=== PATIENT | male | born 1955 | race Caucasian/White ===

== ENCOUNTER 2023-04-01 20:32 | Inpatient (IN) | payer OTHER ==
[~2023-04-01] VITALS: Ht 175.3 cm; Wt 64.9 kg
--- NOTE | 2023-04-01 21:15 | NUR ---
PT AMB TO RM 3 WITH C/O BACK PAIN ,10.
[2023-04-01] MEDS ORDERED: KETOROLAC TROMETHAMINE 60 MG INJ IM ONE ×2 (22:30→23:05)
[2023-04-01] MEDS ORDERED: DIAZEPAM 10 MG/2 ML DISP.SYRIN IM ONE (22:30)
[2023-04-01] MEDS ORDERED: DIAZEPAM 10 MG/2 ML DISP.SYRIN ONE (23:06)
--- NOTE | 2023-04-01 23:14 | NUR ---
Patient medicated as per order, family remains at bedside both updated on plan of care.
[2023-04-02] MEDS ORDERED: MORPHINE SULFATE 4 MG/1 ML DISP.SYRIN IM ONE (00:30)
[2023-04-02] MEDS ORDERED: MORPHINE SULFATE 4 MG/1 ML DISP.SYRIN ONE (00:36)
[2023-04-02 00:42] LABS: HEMATOCRIT 39.3 % (36.7-47.1); MEAN CORPUSCULAR HEMOGLOBIN 30.1 uug (23.8-33.4); MEAN CORPUSCULAR VOLUME 89.1 fL (73.0-96.2); PLATELET COUNT (AUTO) 180 K/uL (152-348)
[2023-04-02 00:54] LABS: CREATININE 1.2 mg/dL (0.6-1.3); POTASSIUM 3.8 mmol/L (3.5-5.1)
[2023-04-02 01:06] LABS: BILIRUBIN,DIRECT 0.2 mg/dL (0.0-0.2); TOTAL PROTEIN, SERUM 6.5 g/dL (6.4-8.2)
[2023-04-02] MEDS ORDERED: TRAMADOL HCL 50 MG TABLET PO ONE (03:30)
[2023-04-02] MEDS ORDERED: TRAMADOL HCL 50 MG TABLET ONE (03:33)
[2023-04-02] MEDS ORDERED: HYDROMORPHONE 1 MG/1 ML DISP.SYRIN IM ONE (06:30)
--- NOTE | 2023-04-02 07:20 | NUR ---
REPORT GIVEN TO LUIS FERNANDO MINOR.
[2023-04-02] MEDS ORDERED: HYDROMORPHONE 1 MG/1 ML DISP.SYRIN ONE (07:45)
--- NOTE | 2023-04-02 07:50 | NUR ---
Per Dina from previous shift, pt has been accepted for m/s admission by , pt to be admitted to room 320 after change of shift.
--- NOTE | 2023-04-02 08:40 | NUR ---
SBAR report given to m/s floor, pt trans to room 320, NAD noted.
[2023-04-02] MEDS ORDERED: MORPHINE SULFATE 2 MG/1 ML DISP.SYRIN IV PRN (09:30)
[2023-04-02] MEDS ORDERED: REMEDY ESSENTIAL ZINC PASTE 113 GM TP PRN (09:30)
[2023-04-02] MEDS ORDERED: ZOLPIDEM 5 MG TABLET PO PRN (09:30)
[2023-04-02] MEDS ORDERED: ACETAMINOPHEN 325 MG TABLET PO PRN (09:30)
[2023-04-02] MEDS ORDERED: ONDANSETRON 4 MG/2 ML VIAL IV PRN (09:30)
[2023-04-02] MEDS ORDERED: MAGNESIUM HYDROXIDE 30 ML LIQUID UDC PO PRN (09:30)
[2023-04-02 10:11] VITALS: BP 117/71; TEMP 97.5; O2SAT 95
[2023-04-02] MEDS ORDERED: CHOL500050 PO (10:19)
[2023-04-02] MEDS ORDERED: FAMO10TA41 PO (10:19)
[2023-04-02] MEDS ORDERED: NAPR220T66 PO (10:19)
[2023-04-02] MEDS ORDERED: SODI650T PO (10:22)
[2023-04-02] MEDS: ENOXAPARIN SODIUM 40 MG/0.4 ML DISP.SYRIN SQ SCH (10:30)
[2023-04-02] MEDS: TRAMADOL HCL 50 MG TABLET PO SCH ×2 (14:22→22:53)
[2023-04-02 15:58] VITALS: BP 135/75; TEMP 98.8; O2SAT 98
[2023-04-02] MEDS ORDERED: Medication Not On Formulary EA (Cholecalciferol (Vitamin D3) (Vitamin D3) 1 CAP) PO SCH (16:45)
[2023-04-02 20:18] VITALS: BP 109/62; TEMP 98.3; O2SAT 97
--- NOTE | 2023-04-03 04:22 | NUR ---
AAOx4 Admitted for chronic back pains. All needs attended. VSS No acute distress noted. Will monitor patient. Fall precautions maintained. Medicated for pain as needed with relief obtained. On scheduled ultram as scheduled. Kept comfortable .
[2023-04-03] MEDS: TRAMADOL HCL 50 MG TABLET PO SCH (05:21)
[2023-04-03 05:28] VITALS: BP 110/66; TEMP 97.9; O2SAT 100
[2023-04-03 06:52] LABS: HEMATOCRIT 39.3 % (36.7-47.1); MEAN CORPUSCULAR VOLUME 88.7 fL (73.0-96.2); PLATELET COUNT (AUTO) 181 K/uL (152-348)
[2023-04-03] MEDS ORDERED: PANTOPRAZOLE SODIUM 40 MG TABLET.DR PO SCH (07:00)
[2023-04-03 07:18] LABS: MAGNESIUM 2.2 mg/dL (1.8-2.4); PHOSPHOROUS 3.4 mg/dL (2.5-4.9); POTASSIUM 3.8 mmol/L (3.5-5.1)
[2023-04-03 08:07] LABS: THYROID STIMULATING HORMONE 1.825 mIU/mL (0.358-3.740)
[2023-04-03] MEDS ORDERED: Medication Not On Formulary EA (Famotidine (Pepcid Ac) 10 MG) PO SCH (09:00)
[2023-04-03] MEDS ORDERED: ERGOCALCIFEROL 50,000 UNIT CAPSULE PO SCH (09:00)
[2023-04-03] MEDS: ENOXAPARIN SODIUM 40 MG/0.4 ML DISP.SYRIN SQ SCH (09:08)
[2023-04-03] MEDS ORDERED: TRAM50TA2 PO (09:51)
[2023-04-03] MEDS ORDERED: MORPHINE SULFATE 4 MG/1 ML DISP.SYRIN IV PRN (10:00)
[2023-04-03 11:58] VITALS: BP 112/68; TEMP 97.6; O2SAT 95
--- NOTE | 2023-04-03 13:06 | NUR ---
Nursing - Discharge instructions reviewed with patient and his brother, both verbalized understanding. All belongings given back to patient , emphasized follow up with is Primary Medical Doctor after discharged. Saline lock on his left forearm was removed, covered w/ folded 2z2 dressing .Patient in good spirit , adequate pain relief , claimed comfortable at this time. , no new complaints noted.
== END 2023-04-03 13:35 | disposition home or self-care (01) | DRG 563 ==
LOC: ER 20:48 → MEDSURG3 04-02 08:07
PROVIDERS: ADMIT Student in an Organized Health Care Education/Training Program; ATTEND Nurse Practitioner Acute Care
DX: S39.012A Strain of muscle, fascia and tendon of lower back, initial encounter (principal); X50.0XXA Overexertion from strenuous movement or load, initial encounter; Y92.89 Other specified places as the place of occurrence of the external cause; K21.9 Gastro-esophageal reflux disease without esophagitis; Z88.6 Allergy status to analgesic agent; R63.4 Abnormal weight loss; R10.9 Unspecified abdominal pain
CPT/HCPCS: 36415; 72131; 83735; 84100; 84443; 85025; A4663; G0378; J1170; J1650; J1885; J2270; J2405; J3360

== ENCOUNTER 2024-02-26 10:01 | Emergency (ER) | payer OTHER, MEDICAID ==
[~2024-02-26] VITALS: Ht 175.3 cm; Wt 68.0 kg
[~2024-02-26 10:01] MED LIST: CHOL500050 PO; FAMO10TA41 PO; NAPR220T66 PO; SODI650T PO; TRAM50TA2 PO
[2024-02-26] MEDS ORDERED: KETOROLAC TROMETHAMINE 60 MG INJ IM ONE (10:39)
[2024-02-26] MEDS: KETOROLAC TROMETHAMINE 60 MG INJ IM ONE (10:43)
[2024-02-26 10:59] LABS: BASOPHILS # (AUTO) 0.1 K/UL (0.0-0.2); BASOPHILS % (AUTO) 0.5 % (0.0-2.0); EOSINOPHILS # (AUTO) 0.1 K/uL (0.0-0.7); EOSINOPHILS % (AUTO) 0.9 % (0.0-7.0); HEMATOCRIT 41.8 % (36.7-47.1); HEMOGLOBIN 13.7 g/dL (12.5-16.3); LYMPHOCYTES # (AUTO) 1.2 K/uL (0.8-4.8); LYMPHOCYTES % (AUTO) 11.2 % (20.5-51.5); MEAN CORPUSCULAR HEMOGLOBIN 29.3 uug (23.8-33.4); MEAN CORPUSCULAR HGB CONC 33 g/dL (32.5-36.3); MEAN CORPUSCULAR VOLUME 89.4 fL (73.0-96.2); MONOCYTES # (AUTO) 0.7 K/uL (0.1-1.30); MONOCYTES % (AUTO) 6.2 % (0.0-11.0); NEUTROPHILS # (AUTO) 8.9 K/uL (1.8-8.9); NEUTROPHILS % (AUTO) 81.2 % (38.5-71.5); PLATELET COUNT (AUTO) 173 K/uL (152-348); RED BLOOD CELL COUNT(AUTO) 4.67 MIL/uL (4.06-5.63); RED CELL DISTRIBUTION WIDTH 13.7 % (12.1-16.2)
[2024-02-26 11:06] LABS: DIFFERENTIAL COMMENT 1
[2024-02-26 11:10] LABS: CALCIUM 8.2 mg/dL (8.5-10.1); CREATININE 1.1 mg/dL (0.6-1.3); POTASSIUM 4.6 mmol/L (3.5-5.1)
[2024-02-26] MEDS ORDERED: OXYCODONE/APAP 5-325 MG TABLET ONE (11:12)
[2024-02-26] MEDS: OXYCODONE/APAP 5-325 MG TABLET PO ONE (11:14)
[2024-02-26 11:16] LABS: ALBUMIN 3.4 g/dL (3.4-5.0); BILIRUBIN,TOTAL 1.1 mg/dL (0.2-1.0); TOTAL PROTEIN, SERUM 6.4 g/dL (6.4-8.2)
[2024-02-26 11:20] LABS: ERYTHROCYTE SEDIMENTATION RATE 4 MM/HR (0-15)
[2024-02-26] MEDS ORDERED: HYDR-3980 PO (11:59)
[2024-02-26] MEDS ORDERED: PRED20TA PO (11:59)
[2024-02-26 12:40] VITALS: BP 121/64; TEMP 208.8; O2SAT 99
== END 2024-02-26 12:10 | disposition home or self-care (01) ==
LOC: ER 10:03
DX: M54.50 Low back pain, unspecified (principal); Z98.890 Other specified postprocedural states; Z79.899 Other long term (current) drug therapy; Z88.8 Allergy status to other drugs, medicaments and biological substances
CPT/HCPCS: 99285; 72131; 80053; 85025; 85651; 36415; 96372; J1885; A4606; A4663

== ENCOUNTER 2024-06-07 16:00 | Emergency (ER) | payer OTHER, MEDICAID ==
[~2024-06-07] VITALS: Ht 175.3 cm; Wt 66.7 kg
[~2024-06-07 16:00] MED LIST changes: +HYDR-3980 PO; +PRED20TA PO
[2024-06-07] MEDS ORDERED: DEXAMETHASONE SOD PHOSPHATE 4 MG INJ ONE (17:20)
[2024-06-07] MEDS: DEXAMETHASONE SOD PHOSPHATE 4 MG INJ IM ONE (17:23)
[2024-06-07] MEDS ORDERED: MELO-105 PO (17:24)
[2024-06-07 17:30] VITALS: BP 109/61; O2SAT 98
== END 2024-06-07 17:30 | disposition home or self-care (01) ==
LOC: ER 16:02
DX: M17.11 Unilateral primary osteoarthritis, right knee (principal); Z98.890 Other specified postprocedural states; Z79.891 Long term (current) use of opiate analgesic; Z79.899 Other long term (current) drug therapy; Z88.1 Allergy status to other antibiotic agents
CPT/HCPCS: 99283; 73560; 73565; 96372; J1100; A4606; A4663